=== PATIENT | female | born 1955 | race Caucasian/White ===

== ENCOUNTER 2018-01-07 13:49 | Emergency (ER) | payer BC, OTHER ==
[2018-01-07] MEDS ORDERED: Ondansetron 8 MG Tab.DIS PO ONE (13:56)
[2018-01-07] MEDS ORDERED: Alum Hydroxide/Mag Hydroxide 15 ML, Lidocaine 2% 15 ML PO ONE ×2 (13:56)
--- NOTE | 2018-01-07 14:36 | EDM.PDOC ---
ED HPI GENERAL MEDICAL PROBLEM - General Stated Complaint: ABDOMINAL PAIN Time Seen by Provider: 01/07/18 13:49 Source of Information: Reports: Patient, Family History Limitations: Reports: No Limitations - History of Present Illness INITIAL COMMENTS - FREE TEXT/NARRATIVE: 62 y.o.w.f with off and on epigastic pain in the past 2 weeks. Worse in supine position, subsides in upright position. No N/V/D no dizziness, had her GB removed in the past. BP 128/28 RR 18 Pulse ox 98% on RA Temp 36.7 pulse 98 Onset Date: 12/24/17 Duration: Intermittent Location: Reports: Abdomen Quality: Reports: Ache, Burning Severity: Moderate Improves with: Reports: Rest, Other (sitting up) Worsens with: Reports: Other (supine position), Movement Context: Reports: Other Upper Abdomen Pain Score (Numeric/FACES): 8 - Related Data Allergies Allergy/AdvReac Type Severity Reaction Status Date / Time No Known Allergies Allergy Verified 01/07/18 14:14 Home Meds: Home Meds NK [No Known Home Meds] 11/13/13 [History] Past Medical History - Past Health History Medical/Surgical History: Denies Medical/Surgical History Social & Family History - Living Situation & Occupation Living situation: Reports: , with Spouse ED ROS GENERAL - Review of Systems Review Of Systems: See Below Constitutional: Reports: No Symptoms HEENT: Reports: No Symptoms Respiratory: Reports: No Symptoms Cardiovascular: Reports: No Symptoms Endocrine: Reports: No Symptoms GI/Abdominal: Reports: Abdominal Pain (epigastric) : Reports: No Symptoms Musculoskeletal: Reports: No Symptoms Skin: Reports: No Symptoms Neurological: Reports: No Symptoms Psychiatric: Reports: No Symptoms Hematologic/Lymphatic: Reports: No Symptoms Immunologic: Reports: No Symptoms ED EXAM, GI/ABD - Physical Exam Exam: See Below Exam Limited By: No Limitations General Appearance: Alert, WD/WN, Mild Distress Eyes: Bilateral: Normal Appearance Ears: Normal External Exam Nose: Normal Inspection Throat/Mouth: Normal Inspection Head: Atraumatic, Normocephalic Neck: Normal Inspection, Supple, Non-Tender Respiratory/Chest: No Respiratory Distress, Lungs Clear, Normal Breath Sounds, Chest Non-Tender Cardiovascular: Normal Peripheral Pulses, Regular Rate, Rhythm GI/Abdominal Exam: Normal Bowel Sounds, Soft, Tender (epigastric tenderness) (Female) Exam: Deferred Rectal (Female) Exam: Deferred Back Exam: Normal Inspection, Full Range of Motion Extremities: Normal Inspection Neurological: Alert, Oriented, CN II-XII Intact, Normal Cognition Psychiatric: Normal Affect, Normal Mood Skin Exam: Warm, Dry, Intact, Normal Color, No Rash Lymphatic: No Adenopathy Course - Vital Signs Text/Narrative:: 62 y.o.w.f with off and on epigastic pain in the past 2 weeks. Worse in supine position, subsides in upright position. No N/V/D no dizziness, had her GB removed in the past. BP 128/28 RR 18 Pulse ox 98% on RA Temp 36.7 pulse 98 PE: WNWD W F with epigastric pain whic subsided while she was getting from her bed Impression: Hiatal Hernia TX: GI cocktail, Zofran Reexam: pain subsided Plan: D/C with instruction Last Recorded V/S: Last Vital Signs Temp 36.6 C 01/07/18 13:49 Pulse 70 01/07/18 14:50 Resp 18 01/07/18 14:50 BP 120/78 01/07/18 14:50 Pulse Ox 99 01/07/18 14:50 - Orders/Labs/Meds Meds: Medications Discontinued Medications Generic Name Dose Route Start Last Admin Trade Name Brandi PRN Reason Stop Dose Admin Al Hydroxide/Mg Hydroxide 15 0 ml 01/07/18 13:56 01/07/18 14:20 ml/ Lidocaine HCl 15 ml PO 01/07/18 13:57 15 ml ONETIME ONE Administration Ondansetron HCl 8 mg 01/07/18 13:56 01/07/18 14:20 Zofran Odt PO 01/07/18 13:57 8 mg ONETIME ONE Administration Departure - Departure Time of Disposition: 14:37 Disposition: Home, Self-Care 01 Condition: Good Clinical Impression: Epigastric abdominal pain - Discharge Information Instructions: Upper Gastrointestinal Series, Abdominal Pain, Adult, Easy-to- Read Referrals: Chelle Calhoun NP [Primary Care Provider] - Forms: ED Department Discharge Additional Instructions: Please f/u this tuesday for a esophgogram at 11.30 am. Please elevate head at night. please come back if your symptoms get worse acutely
== END 2018-01-07 14:50 | disposition home or self-care (01) ==
LOC: FB.ED 13:49
DX: K44.9 Diaphragmatic hernia without obstruction or gangrene (principal)
CPT/HCPCS: 99283; A9270

== ENCOUNTER → 2019-05-14 | Outpatient (CLI) | payer OTHER ==
--- NOTE | 2019-05-22 09:28 | MY ---
INDICATION: Cancer screening. MAMMOGRAPHY: Two-view bilateral digital screening 2-D mammography with breast tomosynthesis and computer aided detection was obtained 05/14/19 and compared with mammograms dating back to 04/09/14 and 02/23/13. DENSITY: Mildly asymmetrical scattered areas of fibroglandular density are noted. No significant interval change, dominant mass lesions, pathologic calcifications , skin thickening, or dimpling could be identified to suggest malignancy. IMPRESSION: Mammography negative for malignancy. Yearly screening mammography recommended for follow-up. Category 1, negative. A letter will be sent to the patient indicating the results of her mammogram in lay terminology. [facility]
== END ==
LOC: FB.DI 12:48
PROVIDERS: ATTEND Nurse Practitioner
DX: Z12.31 Encounter for screening mammogram for malignant neoplasm of breast (principal)
CPT/HCPCS: 77063; 77067

== ENCOUNTER 2025-05-10 06:15 | Day surgery (SDC) | payer MEDICARE ==
[~2025-05-10 06:15] MED LIST: Sodium Chloride 0.9% 10 ML Syringe FLUSH PRN
[2025-05-10] MEDS ORDERED: fentaNYL 100 MCG/2 ML SDV IV ONE (06:16)
[2025-05-10] MEDS ORDERED: Propofol 200 MG/20 ML SDV IV ONE (06:16)
[2025-05-10] MEDS ORDERED: Dexamethasone 4 MG/ML 5 ML MDV IVPUSH ONE (06:16)
[2025-05-10] MEDS ORDERED: Ondansetron 4 MG/2 ML SDV IVPUSH ONE (06:16)
[2025-05-10] MEDS ORDERED: Midazolam 1 MG/ML 2 ML SDV IV ONE (06:16)
[2025-05-10] MEDS ORDERED: Ketorolac 30 MG/ML SDV IVPUSH ONE (06:16)
[2025-05-10] MEDS: Lactated Ringers 1,000 ML IV SCH (06:47)
[2025-05-10] MEDS: Lidocaine 1% with EPINEPHrine 1:100,000 20 ML MDV INJECT ONE (07:49)
== END 2025-05-10 09:04 | disposition home or self-care (01) ==
LOC: FB.SDS 06:15
PROVIDERS: ATTEND Surgery
DX: D47.9 Neoplasm of uncertain behavior of lymphoid, hematopoietic and related tissue, unspecified (principal); E66.9 Obesity, unspecified; Z68.33 Body mass index [BMI] 33.0-33.9, adult; Z79.899 Other long term (current) drug therapy; Z87.891 Personal history of nicotine dependence
CPT/HCPCS: 22903; 88305; 88341; 88342; 88360; J0690; J1100; J2003; J2004; J2250; J2405; J2704; J3010; J7120; J0665; J1885